=== PATIENT | female | born 1975 | race Caucasian/White ===

== ENCOUNTER 2019-04-09 14:07 | Observation (INO) | payer SELFPAY ==
--- NOTE | 2019-04-09 14:17 | ED ---
Abdominal Pain/Female - HPI Summary HPI Summary: 44 year old female presents to the ED by EMS as a transfer from [facility] for cholelithiasis per EMS. Per patient, she has been feeling abdominal pain for over a year, but symptoms resolved with vomiting. Episodes have become more violent over the past several months but have all resolved. This episode, starting 0030 last night, is more severe, constant, and has not resolved. She ate last at dinner yesterday. She reports that the pain starts at her right abdomen and radiates to her lower chest. She was given morphine at [facility], but pain is still severe. Patient has no PMHx of stomach ulcers, CAD, and HTN. Patient does not smoke tobacco. - History of Current Complaint Stated Complaint: GALL STONES PER EMS Hx Obtained From: Patient, EMS ?: No Onset/Duration: Sudden Onset - 0030 last night, Lasting Hours, Still Present Timing: Constant - gradually getting worse Severity Initially: Moderate Severity Currently: Severe Location: Discrete At: RUQ Radiates: Yes Radiates to: Chest - lower chest Character: Sharp Aggravating Factor(s): Nothing Alleviating Factor(s): Nothing Associated Signs and Symptoms: Positive: Chest Pain Allergies/Adverse Reactions: Allergies Allergy/AdvReac Type Severity Reaction Status Date / Time acetaminophen [From Vicodin] Allergy Hives Verified 04/09/19 14:13 adhesive tape Allergy Rash Verified 04/09/19 14:13 hydrocodone [From Vicodin] Allergy Hives Verified 04/09/19 14:13 O negative blood Allergy Anaphylatic Uncoded 04/09/19 14:13 Shock Home Medications: Home Medications Ascorbic Acid/Ascorbate Sodium [Vitamin C 250 mg Tablet Chew] 1 tab PO DAILY [History Confirmed 04/09/19] Iron 18 mg PO DAILY 04/09/19 [History Confirmed 04/09/19] PMH/Surg Hx/FS Hx/Imm Hx Cardiovascular History: Denies: Hx Coronary Artery Disease, Hx Hypertension GI History: Denies: Hx Ulcer - Family History Known Family History: Positive: Cardiac Disease, Hypertension, Diabetes - Social History Alcohol Use: None Hx Substance Use: No Hx Tobacco Use: No Review of Systems Positive: Chest Pain Positive: Abdominal Pain All Other Systems Reviewed And Are Negative: Yes Physical Exam - Summary Physical Exam Summary: Constitutional: Obese, Alert. (-) Distressed Skin: Warm, Dry HENT: Normocephalic; Atraumatic Eyes: Conjunctiva normal Neck: Musculoskeletal ROM normal neck. (-) JVD, (-) Stridor, (-) Tracheal deviation Cardio: Rhythm regular, rate normal, Heart sounds normal; Intact distal pulses; The pedal pulses are 2+ and symmetric. Radial pulses are 2+ and symmetric. (-) Murmur Pulmonary/Chest wall: Effort normal. (-) Respiratory distress, (-) Wheezes, (-) Rales Abd: Soft, RUQ tenderness, (-) Distension, (-) Guarding, (-) Rebound Musculoskeletal: (-) Edema Lymph: (-) Cervical adenopathy Neuro: Alert, Oriented x3 Psych: Mood and affect Normal Triage Information Reviewed: Yes Vital Signs Reviewed: Yes Procedures - Sedation Patient Received Moderate/Deep Sedation with Procedure: No Diagnostics - Laboratory Result Diagrams: 04/09/19 14:17 04/09/19 14:17 Lab Statement: Any lab studies that have been ordered have been reviewed, and results considered in the medical decision making process. Abdominal Pain Fem Course/Dx - Course Course Of Treatment: 44 year old female presents to the ED by EMS as a transfer from [facility] for cholelithiasis per EMS. Per patient, she has been feeling abdominal pain for over a year, but symptoms resolved with vomiting. Episodes have become more violent over the past several months but have all resolved. This episode, starting 0030 last night, is more severe, constant, and has not resolved. She ate last at dinner yesterday. She reports that the pain starts at her right abdomen and radiates to her lower chest. She was given morphine at [facility], but pain is still severe. Patient has no PMHx of stomach ulcers, CAD, and HTN. Patient does not smoke tobacco. Physical exam revealed RUQ tenderness. Patient is obese. Lab results show WBC 11.7 and glucose 142. In the ED course I gave the patient morphine, ondansetrone, and fluids. Diagnosis is cholelithiasis. I spoke to Dr. Perez, Surgery, at 1330, who recommended admission. The patient understands and agrees to this plan. - Diagnoses Provider Diagnoses: Cholelithiasis Is Visit Related: No - Provider Notifications Discussed Care Of Patient With: Beatriz Perez - Surgery Time Discussed With Above Provider: 13:30 Instructed by Provider To: Admit As Inpatient - Spoke to Dr. Perez who recommended the patient be admitted for possible surgery. Admit/Transition Orders Completed By ED Provider: Yes Discharge ED - Sign-Out/Discharge Documenting (check all that apply): Patient Departure - admit - Discharge Plan Condition: Good Disposition: ADMITTED TO [facility] - Attestation Statements Document Initiated by Scribe: Yes Documenting Scribe: Zane Parsons Provider For Whom Scribe is Documenting (Include Credential): Renny Addison DO Scribe Attestation: IZane, scribed for Renny Addison DO on 04/09/19 at 1748. Status of Scribe Document: Ready
[2019-04-09 14:23] LABS: ABS Basophils 0.1 10^3/ul (0-0.2); ABS Lymphocytes 0.9 10^3/ul (1.0-4.8); ABS Monocytes 0.4 10^3/ul (0-0.8); ABS Neutrophils 10.3 10^3/ul (1.5-7.7); Hematocrit 36 % (35-47); Lymphocyte % 7.9 %; Mean Corpuscular HGB Conc 33 g/dL (31-36); Mean Corpuscular Hemoglobin 29 pg (27-31); Mean Corpuscular Volume 87 fL (80-97); Mean Platelet Volume 8.8 fL (7.4-10.4); Platelet Count 260 10^3/uL (150-450); Red Blood Count 4.16 10^6 /uL (3.70-4.87); Red Cell Distribution Width 14 % (10-15); White Blood Count 11.7 10^3/uL (3.5-10.8)
[2019-04-09] MEDS ORDERED: Morphine 4 MG/ML VIAL (1 ml) 4 MG/ML VIAL IV ONE (14:31)
[2019-04-09] MEDS ORDERED: Ondansetron INJ* 2 MG/ML VIAL IV ONE (14:32)
[2019-04-09] MEDS ORDERED: NS 0.9% 1000 ML** 1,000 ML IV ONE (14:32)
[2019-04-09 14:40] LABS: Albumin/Globulin Ratio 1.3 (1-3); BUN/Creatinine Ratio 12.7 (8-20); Calcium 9.3 mg/dL (8.6-10.3); EGFR African American 124.8 (>60); EGFR Non-African American 103.1 (>60); Globulin 3.2 g/dL (2-4); Potassium 4.3 mmol/L (3.5-5.0); Total Bilirubin 0.5 mg/dL (0.2-1.0); Total Protein 7.2 g/dL (6.4-8.9)
[2019-04-09] MEDS ORDERED: ceFAZolin 2 GM in NS PREMIX(*) 2 GM/100 ML BAG IVPB ONE (16:17)
[2019-04-09] MEDS ORDERED: ceFAZolin 1 GM ADVAN(*) 1 GM ADDV.VIAL IVPB ONE (16:17)
[2019-04-09] MEDS ORDERED: fentaNYL* 50 MCG/ML 2 ML VIAL (100 MCG VIAL) ONE ×2 (16:27→20:54)
[2019-04-09] MEDS ORDERED: Midazolam* 1 MG/ML 5 ML VIAL (5 MG) ONE (16:27)
[2019-04-09] MEDS ORDERED: KETAMINE HCL* 50 MG/ML 10 ML VIAL ONE (16:27)
--- NOTE | 2019-04-09 16:28 | PN ---
Progress Note - Progress Note Date of Service: 04/09/19 Note: Surgery Progress Note Please see dictated H&P for full details. But briefly, patient is a 44 yo F with a history of morbid obesity and 1 year of intermittent RUQ abdominal pain and emesis. She presents with RUQ abdominal pain since midnight and has had multiple episodes of emesis. She was seen at [facility] and was found to have a WBC of 13 and a gallstone at the neck. She continued to have intractable pain and was therefore transferred to [facility] for a surgical consultation. On physical exam her abdomen is obese and tender in the RUQ. I have reviewed her labs and imaging. WBC in [facility] has decreased and imaging is consistent with cholelithiasis. Given her intractable pain, nausea and emesis she has given informed consent for a laproscopic cholecystectomy, possible open. She understands that risks include but are not limited to bleeding, infection and injury to nearby structures such as the intestines, liver, common bile duct. She understands other possible risks such as bile duct leak and choledocholithiasis. She understands these things and wishes to proceed with surgery.
[2019-04-09] MEDS ORDERED: Rocuronium* 10 MG/ML VIAL ONE ×2 (16:31→17:16)
[2019-04-09] MEDS ORDERED: Bupivacaine 0.25% SDV PF* 10 ML VIAL INJ ONE (16:34)
[2019-04-09] MEDS ORDERED: Famotidine IV* 10 MG/ML 2 ML (20 mg) IV ONE (16:37)
[2019-04-09] MEDS ORDERED: Buffered Lidocaine 1% SYRIN* 1 ML/SYRINGE INTRADERM ONE (16:37)
[2019-04-09] MEDS ORDERED: Dexamethasone IV* 4 MG/ML 1 ML (4 MG) IV SLOW PU ONE (16:37)
[2019-04-09] MEDS ORDERED: DiMENhydriNATE IV* 50 MG/ML VIAL IV PUSH PRN (16:38)
[2019-04-09] MEDS ORDERED: oxyCODONE TAB* 5 MG TAB PO PRN (16:38)
[2019-04-09] MEDS ORDERED: Naloxone* 0.4 MG/ML 1 ML VIAL IV PRN (16:38)
[2019-04-09] MEDS ORDERED: PROCHLORPERAZINE INJ 5 MG/ML 2 ML VIAL IV PRN (16:38)
[2019-04-09] MEDS ORDERED: fentaNYL* 50 MCG/ML 2 ML VIAL (100 MCG VIAL) IV PRN (16:38)
[2019-04-09] MEDS ORDERED: HYDROmorphone INJ1* 1 MG/ML SYRINGE IV PRN (16:38)
[2019-04-09] MEDS ORDERED: Scopolamine 1.5 mg* PATCH TRANSDERM PRN (16:38)
[2019-04-09] MEDS ORDERED: Famotidine IV* 10 MG/ML 2 ML (20 mg) ONE (16:39)
[2019-04-09] MEDS ORDERED: Dexamethasone IV* 4 MG/ML 1 ML (4 MG) ONE (16:39)
[2019-04-09] MEDS ORDERED: Lactated Ringers 1000 ML Bag* 1,000 ML IV SCH ×2 (17:00→21:00)
[2019-04-09] MEDS ORDERED: Scopolamine 1.5 mg* PATCH ONE (17:17)
[2019-04-09] MEDS ORDERED: Ketorolac INJ* 30 MG/ML 1 ML VIAL ONE (17:19)
[2019-04-09] MEDS ORDERED: Lidocaine 2% PF * 5 ML VIAL ONE (17:19)
[2019-04-09] MEDS ORDERED: PROCHLORPERAZINE INJ 5 MG/ML 2 ML VIAL ONE ×2 (17:19→20:59)
[2019-04-09] MEDS ORDERED: Acetaminophen IV 1GM/100ML * 100 ML ONE (17:19)
[2019-04-09] MEDS ORDERED: Propofol* 10 MG/ML 20 ML BTL ONE (17:19)
--- NOTE | 2019-04-09 17:30 | HP ---
HISTORY AND PHYSICAL: DATE OF ADMISSION: 04/09/19 SERVICE: General Surgery. ATTENDING SURGEON: Dr. Beatriz Perez. REASON FOR ADMISSION: Right upper quadrant abdominal pain and intractable biliary colic. HISTORY OF PRESENT ILLNESS: Ms. Starkey is a very pleasant 44-year-old female with a history of morbid obesity, who presented to [facility] with complaints of right upper quadrant abdominal pain that began around midnight. She said that she was out doing Black Friday shopping and she started having epigastric and right upper quadrant abdominal pain that radiated towards her scapula and the back. She says that the pain persisted for several hours and she vomited approximately 15 times. For this reason, she went to the emergency room. Of note, the patient says that for the past year, she has been having similar episodes of right upper quadrant abdominal pain. She says that typically, however, after she develops the pain she vomits and then she starts to feel better. She never had this abdominal pain worked up. When she was in [facility], a right upper quadrant ultrasound and a CT scan were also done that showed that there was a gallstone in the neck of the gallbladder. She had a white blood cell count of 13 and her LFTs were normal. Given that she had persistent abdominal pain despite IV morphine, she was then transferred to [facility] for a surgical consultation. Currently, the patient says that she feels better because she has been given a lot of morphine. She says that she has not had anything to eat since yesterday. Her only abdominal surgical history is a hysterectomy and a . She has no other complaints today. PAST MEDICAL HISTORY: Anemia, morbid obesity. PAST SURGICAL HISTORY: Breast augmentation, hysterectomy, and section. MEDICATIONS: Vitamin C and iron pills. ALLERGIES: She has an allergy to VICODIN and ADHESIVE TAPE and O negative blood. FAMILY HISTORY: Positive for cardiac disease, hypertension, diabetes. SOCIAL HISTORY: The patient is a nonsmoker. REVIEW OF SYSTEMS: Abdominal pain and emesis. PHYSICAL EXAMINATION VITAL SIGNS: Temperature is 97.4, pulse is 60, respiratory rate is 15, O2 sat is 97% O2 on 2 L nasal cannula, blood pressure is 128/59. DIAGNOSTIC STUDIES/LAB DATA: White blood cell count is 11.7, hemoglobin is 12, hematocrit is 36, platelets 260. Sodium is 138, potassium is 4.3, chloride is 105, CO2 is 26, BUN is 8, creatinine is 0.63, glucose is 142. Total bilirubin is 0.5, AST is 20, ALT is 27, alkaline phosphatase is 88. In [facility] , I was told that her lipase was 10. Imaging: Imaging was reviewed in PACS. Abdomen ultrasound from 04/09/19 shows a gallstone in the patient's gallbladder neck with positive sonographic Mejias sign without biliary dilatation, fatty liver. CT abdomen and pelvis shows questionable gallstone without biliary dilatation, normal appendix, surgically absent uterus. ASSESSMENT AND PLAN: Ms. Starkey is a 44-year-old female with a history of right upper quadrant abdominal pain for approximately 15 hours, who was found to have cholelithiasis. Given her constellation of symptoms with the right upper quadrant pain, the gallstones, and intractable nausea and vomiting, she most likely has biliary colic. She gave an informed consent for a laparoscopic possible open cholecystectomy. I discussed the surgery with her as well as the alternatives and the benefits. She understands the risks include, but are not limited to, bleeding, infection, injury to nearby structures such as the liver, intestines, colon, common bile duct, and that other possible complications include the development of a bile duct leak, choledocholithiasis. She has been n.p.o., and we will proceed to take her to the operating room this evening. [id number]/[facility] #: [id number] ROSA
[2019-04-09] MEDS ORDERED: HYDROmorphone INJ1* 1 MG/ML SYRINGE ONE (18:01)
[2019-04-09] MEDS ORDERED: Sugammadex * 200 MG/2 ML VIAL IV PUSH ONE (19:49)
[2019-04-09] MEDS ORDERED: HYDROmorphone INJ* 0.5 MG/0.5 ML SYRINGE IV SLOW PU PRN (20:18)
[2019-04-09] MEDS ORDERED: Ondansetron INJ* 2 MG/ML VIAL IV PRN (20:18)
--- NOTE | 2019-04-09 20:18 | BRIEFOPN ---
Brief Operative/Procedure Note - Operation Details Pre-Op Diagnosis: biliary colic Post-Op Diagnosis: biliary colic Procedures: laparoscopic cholecystectomy Surgeon(s)/Proceduralists: Carmen Nunez Anesthesia: GETA, [place] Findings: large distended gallbladder and large stones, fatty liver Specimen(s)/Culture(s) Description: gallbladder Complications: none
--- NOTE | 2019-04-09 21:36 | OP ---
DATE OF OPERATION: 04/09/19 - ROOM #331 DATE OF : 77 SERVICE: General Surgery. ATTENDING SURGEON: Beatriz Perez MD. PROOF LOAD MECHANIC: Carmen Romero MD. ANESTHESIOLOGIST: Sebastian Bowers MD ANESTHESIA: General endotracheal anesthesia. PRE-OP DIAGNOSIS: Intractable biliary colic. POST-OP DIAGNOSIS: Intractable biliary colic. OPERATIVE PROCEDURE: Laparoscopic cholecystectomy. ESTIMATED BLOOD LOSS: Approximately 50 mL. SPECIMEN: Gallbladder. INDICATIONS FOR SURGERY: Ms. Starkey is a very pleasant 44-year-old female with a history of morbid obesity, who presented to the emergency room with complaints of right upper quadrant abdominal pain that was persistent and severe in nature. She had also a lot of emesis given that she was found to have cholelithiasis as well as a mildly elevated white blood cell count. Given the intractability of her symptoms, she wished to have for a laparoscopic cholecystectomy. She understood that the risks include but were not limited to, bleeding, infection, injury to nearby structures such as the common bile duct, liver, and intestines. She understood the alternatives and benefits as well and she wished to proceed. DESCRIPTION OF OPERATION: The patient was brought back to the operating room and placed on the operating table in a supine position. Sequential compression devices were placed in the bilateral lower extremities. DVT prophylaxis and antibiotics using Ancef were administered. General endotracheal anesthesia was induced and the patient's abdomen was prepped and draped in a normal sterile fashion. Prior to beginning the surgery, a time-out was performed verifying the patient's name, date of , and the procedure to be performed. Next, a 0.25% Marcaine was infiltrated into the left upper quadrant at [place]. A small incision was made and the abdomen was entered using a Veress needle. Once this was done, the saline drop test was performed that confirmed that we were intraabdominal, and therefore, 0.25% Marcaine was infiltrated above the umbilicus. A 5-mm incision was made and the abdomen was again entered under direct visualization using the Optiview trocar. Once this was done, and after the abdomen was insufflated, inspection of the abdominal cavity showed that there had not been any injury that was made upon entry. The Veress needle was then removed and the remaining 5 mm trocars were placed under direct visualization and a 12-mm trocar was placed just at the right of the falciform. Another 5-mm trocar was placed in the right mid clavicular line and another one in the right mid abdomen. After this was done, the gallbladder was grasped at the fundus and elevated over the liver, however, the patient's liver was extremely enlarged and fatty. It was very difficult to elevate the gallbladder , and still be able to visualize it because the liver on either side of the gallbladder would fall into the space where the gallbladder was. There was also a lot of omentum adherent to the gallbladder as well as to the infundibulum. The infundibulum was very bilobed and pedunculated that was difficult to elevate and grasp, eventually was isolated. It was lifted up, retracted anteriorly and laterally. The cystic duct and cystic artery were skeletonized with great care and the critical view was obtained. Pictures were taken of the view as well. Once this was done, the cystic duct and cystic artery were then doubly clipped distally and proximally once and then divided. Once this was done, the gallbladder was taken off the liver bed using electrocautery and placed into an EndoCatch bag. Hemostasis was obtained on the liver bed. The right upper quadrant was irrigated and the 12 mm trocar site was closed using 0-Vicryl suture with a suture passer. After this was done, all the trocars were removed under direct visualization. There was no bleeding that occurred and desufflation was obtained. The skin was closed using 4- 0 Monocryl suture. Sterile dressings were then placed. The patient's anesthesia was reversed and she was taken to the PACU in stable condition. At the end of the case, all counts were correct and I was present during the entirety of the case. [id number]/[facility] #: [id number] ROSA
[2019-04-09] MEDS: Heparin VIAL(*) 5000 UNITS/ML VIAL (FIVE THOUSAND) SUBCUT SCH (22:51)
[2019-04-09] MEDS: oxyCODONE/Acetamin 5/325 MG* TAB PO PRN (23:58)
[2019-04-10] MEDS: oxyCODONE/Acetamin 5/325 MG* TAB PO PRN ×2 (05:55→10:05)
[2019-04-10] MEDS: Heparin VIAL(*) 5000 UNITS/ML VIAL (FIVE THOUSAND) SUBCUT SCH (10:06)
[2019-04-10 11:41] VITALS: BP 127/62
--- NOTE | 2019-04-10 12:47 | DS ---
DISCHARGE SUMMARY: DATE OF ADMISSION: 04/09/19 DATE OF DISCHARGE: 04/10/19 SERVICE: General Surgery. ATTENDING SURGEON: Beatriz Perez MD ADMISSION DIAGNOSIS: Intractable biliary colic. DISCHARGE DIAGNOSIS: Intractable biliary colic. OPERATION: Laparoscopic cholecystectomy. HOSPITAL COURSE: Ms. Starkey is a very pleasant 44-year-old female with a history of morbid obesity, who presented to the emergency room with complaints of right upper quadrant abdominal pain. She was found to have cholelithiasis and continued to have significant discomfort that was refractory to pain medications; therefore, she gave informed consent for laparoscopic cholecystectomy. The surgery was uneventful; however, given that it ended somewhat late in the evening yesterday, she was admitted overnight for observation. On the day of discharge, on postoperative day 1, the patient was doing very well. She was tolerating a small amount of food. She was ambulating with assistance. Her pain was controlled with oral pain medications. On physical exam, her abdomen was soft, minimally tender around her incision, and nondistended. She was therefore determined to be an appropriate candidate for discharge. DISCHARGE MEDICATIONS: Percocet 5/325 mg p.o. q.6 hours p.r.n. for pain. FOLLOWUP: The patient was told to call the office on Friday to make an appointment to see Dr. Perez in 2 weeks. CONDITION: Good. DISPOSITION: To home. [id number]/[facility] #: [id number] MTDD
[2019-04-12] MEDS ORDERED: Scopolamine PATCH Remove* 1 NOTE MISC PATCH OFF ONE (16:39)
== END 2019-04-10 13:20 | disposition home or self-care (01) ==
LOC: ED 14:07 → OR 16:32 → SSU 20:19 → INTOOBSV 21:39 → UNDOADMOB 21:39 → UNDODISOB 04-10 13:20
PROVIDERS: ADMIT Surgery; ATTEND Surgery
DX: K80.50 Calculus of bile duct without cholangitis or cholecystitis without obstruction (principal); E66.01 Morbid (severe) obesity due to excess calories; D64.9 Anemia, unspecified; R10.11 Right upper quadrant pain
CPT/HCPCS: 36415; 80053; 85025; 88304; 96372; 96374; 96375; 99283; A9270-GY; G0378; J0690; J0780; J1100; J1170; J1644; J1885; J2250; J2270; J2405; J2704; J3010; J3490